=== PATIENT | female | born 1995 | race American Indian/Alaskan Native ===

== ENCOUNTER 2019-08-05 19:14 | Emergency (ER) | payer SELFPAY ==
--- NOTE | 2019-08-05 19:58 | Event Note ---
ED Screening Note Date of service: 08/05/19 Time: 19:55 ED Screening Note: This is a 24 y.o. F. that presents to the ER with vaginal discharge, pruritus, and dysuria for 1 week. She tried monistat with worsening symptoms. LMP 07/18/2019, A1 This initial assessment/diagnostic orders/clinical plan/treatment(s) is/are subject to change based on patients health status, clinical progression and re- assessment by fellow clinical providers in the ED. Further treatment and workup at subsequent clinical providers discretion. Patient/guardian urged not to elope from the ED as their condition may be serious if not clinically assessed and managed. Initial orders include: Pelvic exam Labs
[2019-08-05 21:42] LABS: HCG Qualitative,Urine Negative (Negative)
[2019-08-05 21:48] LABS: Bacteria,Urine 1+ /HPF (Negative); Bilirubin,Urine NEG (Negative); Blood,Urine NEG (Negative); Color,Urine Yellow (Yellow); Mucus,Urine 1+ /HPF; Protein,Urine <15 mg/dL mg/dL (Negative)
--- NOTE | 2019-08-05 23:04 | Emergency Department Report ---
HPI - General Chief Complaint: Urogenital-Female Time Seen by Provider: 08/05/19 19:55 - HPI HPI: room 41 The pt is a 24 y/o F p/w a cc of vaginal irritation. The pt states she has had vaginal irritation and dysuria x 1 week. Pt c/o burning sensation when she urinates. Pt has noticed sl blood on the tissue when she wipes after urinating. Pt admits to white vaginal d/c. Pt denies h/o fever. Pt has used OTC vaginal creams for yeast but it has not helped. ED Past Medical Hx - Past Medical History Previous Medical History?: Yes Hx Asthma: Yes - Surgical History Past Surgical History?: No - Family History Family history: no significant - Social History Smoking Status: Never Smoker Substance Use Type: Marijuana - Medications Home Medications: Home Medications Medication Instructions Recorded Confirmed Last Taken Type Ciprofloxacin HCl [Ciprofloxacin 500 mg PO Q12HR #14 tab 08/06/19 Unknown Rx TAB] Phenazopyridine [Pyridium] 200 mg PO TID #6 tab 08/06/19 Unknown Rx ED Review of Systems ROS: Stated complaint: VAG PAIN/IRRITATION Other details as noted in HPI Constitutional: denies: fever Eyes: denies: eye pain ENT: denies: throat pain Respiratory: no symptoms reported Cardiovascular: denies: chest pain Endocrine: no symptoms reported Gastrointestinal: denies: abdominal pain Genitourinary: dysuria, discharge Musculoskeletal: denies: back pain Neurological: denies: headache Physical Exam - Physical Exam Vital Signs: Vital Signs 08/05/19 19:35 Temperature 98.7 F Pulse Rate 87 Respiratory 18 Rate Blood Pressure 104/61 O2 Sat by Pulse 97 Oximetry Physical Exam: GEN: WD WN female lying on stretcher in NAD HEENT: NCAT, EOMI NECK:Trachea midline, no stridor Pulm: no resp distress ABD: there is no distention Neuro: GCS 15 SKIN: no diaphoresis MS: no evidence of acute injury Pelvic: scant white d/c present ED Course Vital Signs 08/05/19 19:35 Temperature 98.7 F Pulse Rate 87 Respiratory 18 Rate Blood Pressure 104/61 O2 Sat by Pulse 97 Oximetry ED Medical Decision Making - Lab Data Laboratory Tests 08/05/19 21:09 Urine Color Yellow Urine Turbidity Clear Urine pH 6.0 Ur Specific [place] 1.025 Urine Protein <15 mg/dl Urine Glucose (UA) Neg Urine Ketones Neg Urine Blood Neg Urine Nitrite Neg Ur Reducing Substances Not Reportable Urine Bilirubin Neg Urine Ictotest Not Reportable Urine Urobilinogen 2.0 Ur Leukocyte Esterase Neg Urine WBC (Auto) 1.0 Urine RBC (Auto) 2.0 U Epithel Cells (Auto) 4.0 Urine Bacteria (Auto) 1+ Urine Mucus 1+ Urine HCG, Qual Negative wet prep- no yeast, trich or clue cells - Differential Diagnosis uti, urethritis, bacterial vaginosis Critical care attestation.: If time is entered above; I have spent that time in minutes in the direct care of this critically ill patient, excluding procedure time. ED Disposition Clinical Impression: Urethritis, Vaginal discharge Disposition: TO HOME OR SELFCARE Is pt being admited?: No Does the pt Need Aspirin: No Condition: Stable Prescriptions: Ciprofloxacin HCl [Ciprofloxacin TAB] 500 mg PO Q12HR #14 tab Phenazopyridine [Pyridium] 200 mg PO TID #6 tab Referrals: [facility] [Outside] - 3-5 Days Forms: STI Treatment and Prevention Time of Disposition: 00:35
[2019-08-05] MEDS ORDERED: AZITHROMYCIN 1 GM ORAL PWDR PACKET PO ONE (23:49)
[2019-08-05] MEDS ORDERED: LIDOCAINE-MPF (1%) 10 MG/1 ML VIAL 5 ML INFILTRATI ONE (23:49)
[2019-08-06 01:10] VITALS: BP 110/60
== END 2019-08-06 01:07 | disposition home or self-care (01) ==
LOC: ED 19:14
DX: N34.2 Other urethritis (principal); J45.909 Unspecified asthma, uncomplicated; Z79.899 Other long term (current) drug therapy
CPT/HCPCS: 81001; 81025; 87210; 87591; 96372; 99284; J0696

== ENCOUNTER 2020-10-31 18:42 | Emergency (ER) | payer SELFPAY ==
[2020-10-31 19:23] VITALS: BP 112/76
[2020-10-31] MEDS ORDERED: CYCLOBENZAPRINE 10 MG TAB PO ONE (19:52)
[2020-10-31] MEDS ORDERED: ACETAMINOPHEN 500 MG TAB PO ONE (19:52)
[2020-10-31 20:21] LABS: Bilirubin,Urine NEG (Negative); Blood,Urine MOD (Negative); Color,Urine Yellow (Yellow); HCG Qualitative,Urine Negative (Negative); Mucus,Urine FEW /HPF; Protein,Urine <15 mg/dL mg/dL (Negative); Urobilinogen,Urine < 2.0 mg/dL (<2.0)
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
== END 2020-10-31 21:22 | disposition home or self-care (01) ==
LOC: ED 18:42
DX: S39.012A Strain of muscle, fascia and tendon of lower back, initial encounter (principal); M62.838 Other muscle spasm; J45.909 Unspecified asthma, uncomplicated; F12.10 Cannabis abuse, uncomplicated; Z79.899 Other long term (current) drug therapy; V49.59XA Passenger injured in collision with other motor vehicles in traffic accident, initial encounter; Y93.89 Activity, other specified; Y92.488 Other paved roadways as the place of occurrence of the external cause; Y99.8 Other external cause status
CPT/HCPCS: 81001; 81025; 87210; 87591; 99283